=== PATIENT | male | born 1990 | race African-American/Black ===

== ENCOUNTER 2024-01-09 18:25 | Inpatient (IN) | payer OTHER ==
[2024-01-09 18:51] VITALS: BMI 28.1
[2024-01-09] MEDS ORDERED: NICOTINE POLACRILEX 2 MG GUM BUC PRN (19:04)
[2024-01-09] MEDS ORDERED: IBUPROFEN 600 MG TABLET (FP) PO PRN (19:04)
[2024-01-09] MEDS ORDERED: POLYETHYLENE GLYCOL (HEALTHYLAX) 3350 17 GM PACKET PO PRN (19:04)
[2024-01-09] MEDS ORDERED: guaiFENesin 600 MG TABLET.ER (FP) PO PRN (19:04)
[2024-01-09] MEDS ORDERED: BENZONATATE 200 MG CAPSULE PO PRN (19:04)
[2024-01-09] MEDS ORDERED: MAG HYDROX/AL HYDROX/SIMETH 30 ML UNIT-DOSE CUP PO PRN (19:04)
[2024-01-09] MEDS ORDERED: NICOTINE POLACRILEX 2 MG LOZENGE BC PRN (19:04)
[2024-01-09] MEDS ORDERED: IBUPROFEN 400 MG TABLET (FP) PO PRN (19:04)
[2024-01-09] MEDS ORDERED: BENZOCAINE/MENTHOL (CHLORASEPTIC ) LOZENGE MM PRN (19:04)
[2024-01-09] MEDS ORDERED: ACETAMINOPHEN 325 MG TABLET (FP) PO PRN (19:04)
[2024-01-09] MEDS ORDERED: LOPERAMIDE HCL 2 MG CAPSULE PO PRN (19:04)
[2024-01-09] MEDS ORDERED: MAGNESIUM HYDROX 2400MG/30ML ORAL SUSPENSION 30 ML CUP PO PRN (19:04)
[2024-01-09] MEDS ORDERED: amLODIPine BESYLATE 5 MG TABLET (FP) ONE (19:32)
[2024-01-09] MEDS: amLODIPine BESYLATE 5 MG TABLET (FP) PO ONE (19:34)
[2024-01-09] MEDS: TUBERCULIN PPD 5 TU/0.1ML SYRINGE (IN PATIENT USE ONLY) ID ONE (20:10)
[2024-01-09] MEDS: THIAMINE 100 MG TABLET PO SCH (21:26)
[2024-01-09] MEDS: MELATONIN 5 MG TABLETS PO SCH (21:26)
[2024-01-09] MEDS ORDERED: TUBERCULIN PPD 5 TU/0.1ML SYRINGE (IN PATIENT USE ONLY) ID ONE (23:04)
[2024-01-10] MEDS: PRENATAL VITAMINS W/ FOLIC ACID TABLET (FP) PO SCH (09:35)
[2024-01-10] MEDS: hydrOXYzine PAMOATE 25 MG CAPSULE (FP) PO PRN (11:15)
[2024-01-10 11:30] LABS: HEMATOCRIT 41.2 % (35.4-49); HEMOGLOBIN 13.3 GM/dL (11.7-16.9); MCH 26.9 pg (25.7-33.7); MCHC 32.2 g/dl (32.0-35.9); MEAN CELL VOLUME 83.4 fl (80-96); PLATELET COUNT 199 10^3/uL (134-434); RBC 4.94 M/mm3 (4.00-5.60); RDW 14.9 % (11.9-15.9)
[2024-01-10 11:40] LABS: CHLORIDE 102 mmol/L (98-107); POTASSIUM 3.9 mmol/L (3.5-5.1); SODIUM 136 mmol/L (136-145)
[2024-01-10 11:52] LABS: ALBUMIN 3.1 g/dl (3.4-5.0)
[2024-01-10 11:54] LABS: CALCIUM 8.4 mg/dL (8.5-10.1)
[2024-01-10 11:55] LABS: ANION GAP 9 mmol/L (4-13); BLOOD UREA NITROGEN 10.7 mg/dL (7-18); CO2 24 mmol/L (21-32); GLUCOSE,RANDOM 164 mg/dL (74-106)
[2024-01-10 11:58] LABS: CREATININE 0.8 mg/dL (0.55-1.3); SGOT/AST 31 U/L (15-37); SGPT/ALT 55 U/L (13-61)
[2024-01-10 11:59] LABS: BILIRUBIN,TOTAL 0.6 mg/dL (0.2-1); TOT PROT 6.8 g/dl (6.4-8.2)
[2024-01-10 12:01] LABS: ALK PHOS 79 U/L (45-117)
[2024-01-10 12:17] VITALS: BP 140/84; PULSE 83; RESP 18; TEMP 97.7
[2024-01-10 13:30] LABS: SYPHILIS W/ RPR CONF REACTIVE (NONREACTIVE)
== END 2024-01-10 13:23 | disposition left against medical advice (07) | DRG 770 ==
LOC: YASAS 18:25 → Y3NR 19:39 → Y3W 01-10 11:55
PROVIDERS: ADMIT Allergy & Immunology; ATTEND Psychiatry & Neurology Pain Medicine
PROC: HZ42ZZZ Group Counseling for Substance Abuse Treatment, Cognitive-Behavioral (ICD-10-PCS; principal; 2024-01-09)
DX: F10.20 Alcohol dependence, uncomplicated (principal); F12.20 Cannabis dependence, uncomplicated; F17.210 Nicotine dependence, cigarettes, uncomplicated; F32.A Depression, unspecified; I10 Essential (primary) hypertension; Z59.02 Unsheltered homelessness; Z88.0 Allergy status to penicillin
CPT/HCPCS: 36415; 80053; 80305; 80307; 85027; 86593; 86780; 86803; 87811; 93005; 93010